=== PATIENT | female | born 1970 | race Hispanic/Latino ===

== ENCOUNTER 2021-07-04 08:04 | Day surgery (SDC) | payer BC ==
[2021-06-26 13:46] LABS: BASOPHILS % (AUTO) 0.8 % (0.0-5.0); EOSINOPHILS % (AUTO) 0.9 % (0.0-8.0); HEMATOCRIT 41.3 % (36-48); LYMPHOCYTES % (AUTO) 21.6 % (21.0-51.0); MEAN CORPUSCULAR HEMOGLOBIN 30.2 pg (27.0-33.0); MEAN CORPUSCULAR HGB CONC 32.2 g/dL (32.0-36.0); MEAN CORPUSCULAR VOLUME 93.9 fL (79-99); MONOCYTES % (AUTO) 4.6 % (3.0-13.0); NEUTROPHILS % (AUTO) 71.9 % (40.0-77.0); PLATELET COUNT (AUTO) 297 K/uL (130-400); RED CELL DISTRIBUTION WIDTH 13.3 % (11.0-15.5); WHITE BLOOD COUNT (AUTO) 6.5 K/uL (4.8-10.8)
[2021-06-29] MEDS: CEFAZOLIN SODIUM 1 GM VIAL IVP SCH (11:00)
[2021-06-29] MEDS: METRONIDAZOLE 500MG/100ML BAG 100 ML IVPB SCH (11:00)
[2021-07-03 10:35] VITALS: BP 98/61
[~2021-07-04] VITALS: Ht 162.6 cm; Wt 87.4 kg
[2021-07-04] VITALS (20 sets, daily range): BP systolic 94–127; BP diastolic 54–99
[2021-07-04] MEDS ORDERED: PHENAZOPYRIDINE HCL 200 MG TABLET ONE (08:40)
[2021-07-04] MEDS ORDERED: LACTATED RINGERS 1000ML 1,000 ML IV ONE (08:45)
[2021-07-04] MEDS ORDERED: VITAMIN D PO (09:23)
[2021-07-04] MEDS ORDERED: MAGN400T40 PO (09:23)
[2021-07-04] MEDS ORDERED: ZINC220T4 PO (09:23)
[2021-07-04] MEDS ORDERED: ASCO100031 PO (09:23)
[2021-07-04] MEDS ORDERED: COLLAGEN PO (09:23)
[2021-07-04] MEDS ORDERED: MACA ROOT PO (09:23)
[2021-07-04] MEDS ORDERED: OMEGA 3 PO (09:23)
[2021-07-04] MEDS ORDERED: BUPIVACAINE LIPOSOME/PF 266 MG/20 ML ML IJ SCH (09:30)
[2021-07-04] MEDS ORDERED: GLYCOPYRROLATE 1 MG/5 ML SYRINGE ONE (11:06)
[2021-07-04] MEDS ORDERED: PROPOFOL 10 MG/ML 20ML VIAL IV ONE (11:06)
[2021-07-04] MEDS ORDERED: SUCCINYLCHOLINE 200MG/10ML SYR ONE (11:06)
[2021-07-04] MEDS ORDERED: LIDOCAINE PF 100MG/5ML (2%) SYRINGE 5ML ONE (11:06)
[2021-07-04] MEDS ORDERED: DEXAMETHASONE SOD PHOSPHATE 10MG/ML 1ML VIAL ONE (11:06)
[2021-07-04] MEDS ORDERED: FENTANYL CITRATE PF 50 MCG/1 ML 2ML VIAL ONE (11:07)
[2021-07-04] MEDS ORDERED: MIDAZOLAM HCL 1 MG/ML 2ML VIAL ONE (11:07)
[2021-07-04] MEDS ORDERED: ROCURONIUM 10MG/1ML SYR 10 MG/ML ML ONE (11:07)
[2021-07-04] MEDS ORDERED: ONDANSETRON 4MG INJ ONE ×3 (11:07→15:47)
[2021-07-04] MEDS ORDERED: NEOSTIGMINE 5MG/5ML SYR IV ONE (11:07)
[2021-07-04] MEDS: CEFAZOLIN SODIUM 1 GM VIAL IVP SCH (11:40)
[2021-07-04] MEDS: METRONIDAZOLE 500MG/100ML BAG 100 ML IVPB SCH (11:45)
[2021-07-04] MEDS ORDERED: FENTANYL CITRATE PF 50 MCG/1 ML 5ML AMP IV ONE (13:41)
[2021-07-04] MEDS ORDERED: METHYLENE BLUE 5 MG/ML AMP ONE (14:13)
[2021-07-04] MEDS ORDERED: ACETAMINOPHEN 500 MG TABLET ONE (15:44)
== END 2021-07-04 18:55 | disposition home or self-care (01) ==
LOC: DAH 08:04 → EDSTATUS 09:00 → DAH 18:55
PROVIDERS: ATTEND Obstetrics & Gynecology
DX: N92.0 Excessive and frequent menstruation with regular cycle (principal); Z20.822 Contact with and (suspected) exposure to COVID-19; D25.1 Intramural leiomyoma of uterus; N72 Inflammatory disease of cervix uteri; N88.8 Other specified noninflammatory disorders of cervix uteri; N83.8 Other noninflammatory disorders of ovary, fallopian tube and broad ligament; K21.9 Gastro-esophageal reflux disease without esophagitis; Z98.890 Other specified postprocedural states; Z80.0 Family history of malignant neoplasm of digestive organs; Z79.899 Other long term (current) drug therapy
CPT/HCPCS: 36415 ×2; 58571; 84703; 85025; 86850 ×2; 86900 ×2; 86901 ×2; 87635; A4215 ×3; A4221; A4222; A4223; A4344; A4510; A4600; A4649 ×3; A4663; A6260; C9290; G0168; J0330; J1100; J2001; J2250; J2405 ×3; J2704; J2710; J3010 ×2; J3490; J7030; J7120 ×2; Q9968; S2900; J0690